=== PATIENT | male | born 1995 | race Caucasian/White ===

== ENCOUNTER 2024-05-12 05:50 | Emergency (ER) | payer MEDICAID ==
[~2024-05-12] VITALS: Ht 177.8 cm; Wt 97.7 kg
[2024-05-12 05:53] VITALS: BP 117/65; PULSE 61; RESP 18; TEMP 98.3; O2SAT 98
[2024-05-12] MEDS ORDERED: AMOX-117 PO (06:38)
== END 2024-05-12 06:56 | disposition home or self-care (01) ==
LOC: ER 05:52
DX: K08.89 Other specified disorders of teeth and supporting structures (principal)
CPT/HCPCS: 99283